=== PATIENT | female | born 1980 ===

== ENCOUNTER 2017-10-21 18:13 | Emergency (ER) | payer OTHER ==
[2017-10-21 18:21] VITALS: BP 113/66; PULSE 86; RESP 18; TEMP 99.9; O2SAT 98
--- NOTE | 2017-10-21 19:13 | ED PDOC ---
HPI: General Adult Time Seen by Provider: 10/21/17 18:50 Chief Complaint (Nursing): Flu-like Symptoms Chief Complaint (Provider): Flu Like Symptoms History Per: Patient History/Exam Limitations: no limitations Onset/Duration Of Symptoms: Days (x1) Current Symptoms Are (Timing): Still Present Additional Complaint(s): 37 year old female presents to the ED with flu like symptoms. The patient states that last night she developed body aches, swollen lymph nodes, headache and subjective fever. Denies cough, nausea, vomiting, diarrhea. PMD: Dr. Bunny Gayle Past Medical History Reviewed: Historical Data, Nursing Documentation, Vital Signs Vital Signs: Last Vital Signs Temp 99.9 F H 10/21/17 18:17 Pulse 86 10/21/17 18:17 Resp 18 10/21/17 18:17 BP 113/66 10/21/17 18:17 Pulse Ox 98 10/21/17 18:17 - Medical History PMH: HTN - Surgical History Surgical History: Appendectomy - Social History Current smoker - smoking cessation education provided: No Ex-Smoker (has not smoked in the last 12 months): No Alcohol: None Drugs: Denies - Immunization History Hx Tetanus Toxoid Vaccination: No Hx Influenza Vaccination: No Hx Pneumococcal Vaccination: No - Home Medications Home Medications: Ambulatory Orders Medication Instructions Recorded valACYclovir [Valtrex] 2 gm PO BID #4 tab 09/07/15 Oseltamivir Phosphate [Tamiflu] 75 mg PO BID #10 capsule 10/21/17 - Allergies Allergies/Adverse Reactions: Allergies Allergy/AdvReac Type Severity Reaction Status Date / Time Penicillins Allergy Intermediate RASH Verified 10/21/17 18:25 Review of Systems Constitutional: Positive for: Fever (subjective), Other (bodyaches) Respiratory: Negative for: Cough Gastrointestinal: Negative for: Nausea, Vomiting, Diarrhea Neurological: Positive for: Headache Physical Exam - Physical Exam Appears: Positive for: Non-toxic. Negative for: Well (appears ill) Head Exam: Positive for: NORMAL INSPECTION Skin: Positive for: Normal Color, Warm, Dry. Negative for: Rash Eye Exam: Positive for: Normal appearance, EOMI, PERRL ENT: Positive for: Normal ENT Inspection. Negative for: Nasal Congestion, Pharyngeal Erythema, Tonsillar Exudate, Tonsillar Swelling Cardiovascular/Chest: Positive for: Regular Rate, Rhythm, Chest Non Tender. Negative for: Tachycardia Respiratory: Positive for: Normal Breath Sounds. Negative for: Wheezing, Respiratory Distress Neurologic/Psych: Positive for: Alert, Oriented - ECG O2 Sat by Pulse Oximetry: 98 (RA) Pulse Ox Interpretation: Normal Medical Decision Making Medical Decision Makin Initial Impression 37 y/o female presenting with flu like symptoms Initial Plan: * Reevaluation Documented by Heather Erickson acting as a scribe for Miguelina Hemphill PA-C. All medical record entries made by the Scribe were at my direction and personally dictated by me. I have reviewed the chart and agree that the record accurately reflects my personal performance of the history, physical exam, medical decision making, and the department course for this patient. I have also personally directed, reviewed, and agree with the discharge instructions and disposition. Disposition - Clinical Impression Clinical Impression: Influenza-like symptoms - Patient ED Disposition Is Patient to be Admitted: No Counseled Patient/Family Regarding: Studies Performed, Diagnosis, Rx Given - Disposition Disposition: Routine/Home Disposition Time: 19:16 Condition: STABLE Prescriptions: Oseltamivir Phosphate [Tamiflu] 75 mg PO BID #10 capsule Instructions: Influenza (ED) Forms: [facility] ([place]) - POA Present On Arrival: None
== END 2017-10-21 19:10 | disposition home or self-care (01) ==
LOC: H.ER 18:13
DX: J11.1 Influenza due to unidentified influenza virus with other respiratory manifestations (principal); I10 Essential (primary) hypertension; Z87.891 Personal history of nicotine dependence; Z88.0 Allergy status to penicillin

== ENCOUNTER 2018-10-10 00:53 | Emergency (ER) | payer OTHER ==
[2018-10-10 01:06] VITALS: O2SAT 98
[2018-10-10] MEDS ORDERED: Iohexol 240 (50 ml) PO ONE (01:50)
[2018-10-10] MEDS ORDERED: Iohexol 240 (50 ml) ONE (02:50)
[2018-10-10] MEDS ORDERED: Morphine 4 MG/ML VIAL ONE (02:50)
[2018-10-10 03:24] LABS: BASO % 0.3 % (0.0-2.0); EOS % 0.3 % (0.0-4.0); HEMOGLOBIN 11.6 g/dL (12.0-16.0); LYMPH # 0.8 K/uL (1.0-4.3); LYMPH % 13.9 % (20.0-40.0); MEAN CELL VOLUME 90.9 fl (81.0-99.0); MEAN CORPUSCULAR HEMOGLOBIN 30.2 pg (27.0-31.0); MEAN CORPUSCULAR HGB CONC 33.2 g/dL (33.0-37.0); MEAN PLATELET VOLUME 9.5 fl (7.2-11.7); MONO # 0.3 K/uL (0.0-0.8); MONO % 4.8 % (0.0-10.0); NEUT # 4.9 K/uL (1.8-7.0); NEUT % 80.7 % (50.0-75.0); NRBC % 0.1 % (0.0-0.0); RBC 3.85 Mil/uL (3.80-5.20); RED CELL DISTRIBUTION WIDTH 13.1 % (11.5-14.5)
[2018-10-10 03:25] LABS: ALB/GLOB RATIO 1.1 (1.0-2.1); ALBUMIN 4.2 g/dL (3.5-5.0); ALT/SGPT 43 U/L (9-52); AST/SGOT 44 U/L (14-36); BLOOD UREA NITROGEN 9 mg/dl (7-17); GFR NON-AFRICAN AMERICAN > 60; LIPASE 47 U/L (23-300)
--- NOTE | 2018-10-10 05:03 | ED PDOC ---
HPI: Abdomen Time Seen by Provider: 10/10/18 01:06 Chief Complaint (Nursing): Abdominal Pain Chief Complaint (Provider): Epigastric abdominal pain History Per: Patient History/Exam Limitations: no limitations Onset/Duration Of Symptoms: Hrs Outside of [place] travel?: No Current Symptoms Are (Timing): Still Present Additional Complaint(s): 37 yo female with history of gastric sleeve presents for evaluation of abdominal pain. PT reports pain most in the epigastric area but states it does hurt all over. PT also reports nausea/vomiting and watery diarrhea. No fever/chills. Past Medical History Vital Signs: Last Vital Signs Temp 99.7 F H 10/10/18 00:59 Pulse 88 10/10/18 00:59 Resp 17 10/10/18 00:59 BP 123/84 10/10/18 00:59 Pulse Ox 98 10/10/18 00:59 - Medical History PMH: HTN - Surgical History Surgical History: Appendectomy - Family History Family History: States: No Known Family Hx - Immunization History Hx Tetanus Toxoid Vaccination: No Hx Influenza Vaccination: No Hx Pneumococcal Vaccination: No - Home Medications Home Medications: Ambulatory Orders Medication Instructions Recorded valACYclovir [Valtrex] 2 gm PO BID #4 tab 09/07/15 Oseltamivir Phosphate [Tamiflu] 75 mg PO BID #10 capsule 10/21/17 - Allergies Allergies/Adverse Reactions: Allergies Allergy/AdvReac Type Severity Reaction Status Date / Time Penicillins Allergy Intermediate RASH Verified 10/21/17 18:25 - Laboratory Results Result Diagrams: 10/10/18 02:45 10/10/18 02:45 - ECG O2 Sat by Pulse Oximetry: 98 Medical Decision Making Medical Decision Making: Continued care by Dr. Elias. CT pending. Disposition - Clinical Impression Clinical Impression: Abdominal pain - Patient ED Disposition Is Patient to be Admitted: Transfer of Care - Disposition Disposition: Transfer of Care Disposition Time: 05:15 Condition: STABLE Forms: [facility] ([place]ian)
[2018-10-10] MEDS ORDERED: Sodium Chloride 0.9% 50 ML IV ONE (05:42)
[2018-10-10] MEDS ORDERED: Iohexol 300 100 ML IJ ONE (05:42)
--- NOTE | 2018-10-10 06:50 | ED PDOC ---
ED Additional Note - Date & Time of Evaluation Date of Evaluation: 10/10/18 - Physician Additional Note Physician Additional Note: Time: 0700 --Patient to be endorsed to Dr. Heck, pending CT ABD/pelvis results. Scribe Attestation: Documented by Savannah Wang, acting as a scribe for Chas Elias MD. Provider Scribe Attestation: All medical record entries made by the Scribe were at my direction and personally dictated by me. I have reviewed the chart and agree that the record accurately reflects my personal performance of the history, physical exam, medical decision making, and the department course for this patient. I have also personally directed, reviewed, and agree with the discharge instructions and disposition.
--- NOTE | 2018-10-10 07:12 | ED PDOC ---
- Laboratory Results Result Diagrams: 10/10/18 02:45 10/10/18 02:45 - ECG O2 Sat by Pulse Oximetry: 98 Medical Decision Making Medical Decision Makinam pending CT result CT reveals internal hernia however nonincarcerated, per radiologist likely incidental finding. Surgery consulted and recommended Obs for possible OR given pain Surgery resident in ED, further orders placed and care transferred. Dr Sánchez in ED 1030a Abd US no acute findings per radiologist 2PM surgery Dr Sánchez and Ander re-evaluated patient, pain-free, state ok for discharge to see in office this week for scheduling of elective repair. Results explained in lithuanian and patient understanding of plan and need for return ER immediately if symptoms or pain return. Disposition - Clinical Impression Clinical Impression: Abdominal pain, Internal hernia - POA Present On Arrival: None - Disposition Disposition: Routine/Home Disposition Time: 09:00 Condition: STABLE
[2018-10-10 07:53] VITALS: RESP 19
[2018-10-10] MEDS ORDERED: Morphine 4 MG/ML VIAL IVP PRN (08:38)
[2018-10-10] MEDS ORDERED: Lactated Ringer's 1,000 ML IV SCH (08:45)
[2018-10-10 09:03] LABS: VENOUS BLOOD GAS BASE EXCESS 2.3 mmol/L (0.0-2.0); VENOUS BLOOD GAS PCO2 43 mmHg (40-60); VENOUS BLOOD GAS PO2 37 mm/Hg (30-55); VENOUS BLOOD PH 7.41 (7.32-7.43)
[2018-10-10 09:04] VITALS: TEMP 97
[2018-10-10 10:00] LABS: INR 1.1; PROTHROMBIN TIME 12.7 Seconds (9.8-13.1)
--- NOTE | 2018-10-10 10:07 | CP.PCM.HP ---
History of Present Illness - History of Present Illness History of Present Illness: General Surgery H&P for Dr. Sánchez Consult: Internal Hernia CC: Abdominal pain, nausea, vomiting, diarrhea HPI: 37 year old female, past medical history of Gastric Bypass (2 years ago), presents to the [facility] emergency department with abdominal pain, nausea, and vomiting. Patient states since yesterday she began having significant abdominal in with nausea, multiple episodes of NBNB vomiting, and clear diarrhea. She goes weeks without having a bowel movement since having her surgery. Patient has been unable to tolerate a PO diet. Admits to subjective fever and chills. The pain medications in the ED have helped alleviate her pain symptoms. No aggravating factors that she is aware of. Denies SOB, CP, or urinary symptoms. PMH: None PSH: Gastric Bypass (2 years ago), Appendectomy, Breast reduction FH: Noncontributory SH: Denies tobacco, alcohol, drugs ALL: PCNs Meds: See MAR Present on Admission - Present on Admission Any Indicators Present on Admission: No Review of Systems - Constitutional Constitutional: absent: Chills, Fever, Weight Loss - EENT Eyes: absent: Blurred Vision, Change in Vision Nose/Mouth/Throat: absent: Nasal Congestion, Nasal Discharge - Cardiovascular Cardiovascular: absent: Chest Pain, Dyspnea - Respiratory Respiratory: absent: Cough, Dyspnea - Gastrointestinal Gastrointestinal: Abdominal Pain, Diarrhea, Nausea, Vomiting - Genitourinary Genitourinary: absent: Difficulty Urinating, Dysuria - Musculoskeletal Musculoskeletal: absent: Back Pain, Neck Pain - Integumentary Integumentary: absent: Bleeding Lesions, Changing Lesions - Neurological Neurological: absent: Confusion, Dizziness - Psychiatric Psychiatric: absent: Anxiety, Depression Past Patient History - Infectious Disease Hx of Infectious Diseases: None - Past Medical History & Family History Past Medical History?: No - Past Social History Smoking Status: Never Smoked - CARDIAC Hx Hypertension: Yes - PSYCHIATRIC Hx Substance Use: No - SURGICAL HISTORY Hx Surgeries: Yes Hx Appendectomy: Yes - ANESTHESIA Hx Anesthesia: Yes Meds Allergies/Adverse Reactions: Allergies Allergy/AdvReac Type Severity Reaction Status Date / Time Penicillins Allergy Intermediate RASH Verified 10/21/17 18:25 Physical Exam - Constitutional Appears: Non-toxic, No Acute Distress - Head Exam Head Exam: ATRAUMATIC, NORMAL INSPECTION, NORMOCEPHALIC - Eye Exam Eye Exam: EOMI - ENT Exam ENT Exam: Mucous Membranes Dry - Respiratory Exam Respiratory Exam: NORMAL BREATHING PATTERN. absent: Respiratory Distress - Cardiovascular Exam Cardiovascular Exam: REGULAR RHYTHM. absent: Tachycardia - GI/Abdominal Exam GI & Abdominal Exam: Guarding, Normal Bowel Sounds, Rebound, Soft, Tenderness. absent: Distended - Neurological Exam Neurological exam: Alert, Oriented x3 - Psychiatric Exam Psychiatric exam: Normal Affect, Normal Mood - Skin Skin Exam: Dry, Intact, Normal Color, Warm Results - Vital Signs Recent Vital Signs: Last Vital Signs Temp 97 F L 10/10/18 09:03 Pulse 65 10/10/18 09:03 Resp 19 10/10/18 09:03 BP 115/67 10/10/18 09:03 Pulse Ox 98 10/10/18 09:03 - Labs Result Diagrams: 10/10/18 02:45 10/10/18 02:45 Labs: Laboratory Results - last 24 hr 10/10/18 10/10/18 10/10/18 02:45 02:45 08:48 WBC 6.0 RBC 3.85 Hgb 11.6 L Hct 35.0 MCV 90.9 MCH 30.2 MCHC 33.2 RDW 13.1 Plt Count 211 MPV 9.5 Neut % (Auto) 80.7 H Lymph % (Auto) 13.9 L [place] % (Auto) 4.8 Eos % (Auto) 0.3 Baso % (Auto) 0.3 Neut # (Auto) 4.9 Lymph # (Auto) 0.8 L [place] # (Auto) 0.3 Eos # (Auto) 0.0 Baso # (Auto) 0.0 PT INR pO2 37 VBG pH 7.41 VBG pCO2 43 VBG HCO3 26.2 VBG Total CO2 28.6 H VBG O2 Sat (Calc) 76.7 H VBG Base Excess 2.3 H VBG Potassium 3.7 Glucose 90 Lactate 0.6 L FiO2 21.0 Sodium 135 134.0 Potassium 4.3 Chloride 103 105.0 Carbon Dioxide 24 Anion Gap 12 BUN 9 Creatinine 0.7 Est GFR ( Amer) > 60 Est GFR (Non-Af Amer) > 60 Random Glucose 102 Calcium 9.0 Total Bilirubin 0.7 AST 44 H ALT 43 Alkaline Phosphatase 95 Total Protein 7.9 Albumin 4.2 Globulin 3.7 Albumin/Globulin Ratio 1.1 Lipase 47 Venous Blood Potassium 3.7 10/10/18 09:30 WBC RBC Hgb Hct MCV MCH MCHC RDW Plt Count MPV Neut % (Auto) Lymph % (Auto) [place] % (Auto) Eos % (Auto) Baso % (Auto) Neut # (Auto) Lymph # (Auto) [place] # (Auto) Eos # (Auto) Baso # (Auto) PT 12.7 INR 1.1 pO2 VBG pH VBG pCO2 VBG HCO3 VBG Total CO2 VBG O2 Sat (Calc) VBG Base Excess VBG Potassium Glucose Lactate FiO2 Sodium Potassium Chloride Carbon Dioxide Anion Gap BUN Creatinine Est GFR ( Amer) Est GFR (Non-Af Amer) Random Glucose Calcium Total Bilirubin AST ALT Alkaline Phosphatase Total Protein Albumin Globulin Albumin/Globulin Ratio Lipase Venous Blood Potassium Assessment & Plan - Assessment and Plan (Free Text) Assessment: 37F w/ abdominal pain, nausea, vomiting CT scan shows internal hernia, not incarcerated Plan: NPO IVF No NGT - risk of gastric pouch perforation Antiemetics and analgesics Vital Signs I&Os Serial abdominal exams Type and Screen PT/INR CXR Symptoms resolved spontaneously in the ED, patient to follow up as an outpatient Instructions given to return if symptoms return/worsen D/w Dr. Gonzalo Carlos PGY1
[2018-10-10 10:26] LABS: PARTIAL THROMBOPLASTIN TIME 66.7 Seconds (25.6-37.1)
--- NOTE | 2018-10-10 11:53 | US ---
Date of service: 10/10/2018 HISTORY: abd pain COMPARISON: None. TECHNIQUE: Sonographic evaluation of the right upper quadrant of the abdomen. FINDINGS: LIVER: Measures 14.0 cm in length. Normal echogenicity of the liver parenchyma. No mass. No intrahepatic bile duct dilatation. GALLBLADDER: Gallbladder is physiologically distended. No evidence of intraluminal gallbladder calculi. No pericholecystic fluid collections or sonographic Huber sign. COMMON BILE DUCT: Measures 4.7 mm. No stones. No dilatation. PANCREAS: Unremarkable as visualized. No mass. No ductal dilatation. RIGHT KIDNEY: Measures 12.0 x 6.0 x 6.5 cm in length. Normal echogenicity. No calculus, mass, or hydronephrosis. AORTA: No aneurysmal dilatation. IVC: Unremarkable. OTHER FINDINGS: None . IMPRESSION: Unremarkable right upper quadrant ultrasound.
[2018-10-10 12:47] LABS: INR 1.1; PROTHROMBIN TIME 12.6 Seconds (9.8-13.1)
[2018-10-10 12:50] LABS: PARTIAL THROMBOPLASTIN TIME 36.7 Seconds (25.6-37.1)
[2018-10-10 13:41] LABS: SQUAMOUS EPITHIAL 4 /hpf (0-5); URINE BACTERIA RARE (<OCC); URINE BILIRUBIN NEGATIVE (NEGATIVE); URINE BLOOD NEGATIVE (NEGATIVE); URINE CLARITY CLEAR (Clear); URINE COLOR YELLOW (YELLOW); URINE GLUCOSE (UA) NEG (NEGATIVE); URINE LEUKOCYTE ESTERASE NEG Leu/uL (Negative); URINE PROTEIN NEGATIVE (NEGATIVE); URINE UROBILINOGEN 0.2-1.0 mg/dL (0.2-1.0)
[2018-10-10 14:37] VITALS: BP 128/78; PULSE 78
--- NOTE | 2018-10-10 14:54 | CT ---
Date of service: 10/10/2018 PROCEDURE: CT Abdomen and Pelvis with contrast HISTORY: abdominal pain, hx gastric bypass COMPARISON: None. TECHNIQUE: Contrast dose: Radiation dose: Total exam DLP = 534.22 mGy-cm. This CT exam was performed using one or more of the following dose reduction techniques: Automated exposure control, adjustment of the mA and/or kV according to patient size, and/or use of iterative reconstruction technique. FINDINGS: LOWER THORAX: Heart size is within range of normal. No significant pericardial effusion. Tiny hiatal hernia. Mild passive/dependent type atelectasis both posterior lower lung toney. LIVER: Liver exhibits normal size. Significant intrahepatic biliary ductal dilatation with dilatation of the common bile duct. Mild fatty hepatic infiltration. The GALLBLADDER AND BILE DUCTS: Gallbladder is markedly distended. No evidence of intraluminal gallbladder calculi. Common bile duct is the significantly dilated to the level of the ampulla. Note that the wall of the duodenum at this level is slightly irregular which could be due to incomplete distention and peristalsis however possibility of a duodenitis cannot be excluded. Clinical correlation recommended. Follow-up MRCP and/or ERCP recommended. PANCREAS: Pancreas appears grossly unremarkable without masses collections or calcifications.. No gross lesion or ductal dilatation. SPLEEN: Spleen exhibits normal size and attenuation pattern without masses collections or calcifications. ADRENALS: The no adrenal lesions KIDNEYS AND URETERS: Kidneys demonstrate symmetric nephrograms. No evidence of nephrolithiasis or hydronephrosis. VASCULATURE: Unremarkable. No aortic aneurysm. No aortic atherosclerotic calcification or mural plaque present. BOWEL: Evaluation of the bowel is somewhat limited due to incomplete opacification. Postoperative changes of gastric sleeve procedure. Stomach is incompletely distended. No evidence of acute mechanical small bowel obstruction with oral contrast material extending into the colon to the level of the proximal/mid transverse colon region. The. APPENDIX: Normal appendix. PERITONEUM: No free fluid. No free air. Apparent swirled appearance of superior mesenteric vein right mid abdomen.. No convincing evidence of swirled appearance mesentery to suggest internal hernia however clinical correlation recommended Small fat contain umbilical hernia. LYMPH NODES: Unremarkable. No enlarged lymph nodes. BLADDER: Urinary bladder is physiologically distended. No evidence of intraluminal urinary bladder calculi. REPRODUCTIVE: Questionable small cervical nabothian cyst.. There appears to be a 2 cm right ovarian cyst within adjacent smaller involuting and/or hemorrhagic cyst. BONES: Mild multilevel degenerative spondylosis of the lower thoracic and lumbar spine OTHER FINDINGS: None. IMPRESSION: Mild fatty hepatic infiltration. Marked intrahepatic biliary ductal dilatation and dilatation of the common bile duct to the level of the anterior apparent. Slight wall thickening of the duodenum possibly secondary to a combination of incomplete distention and peristalsis however a duodenitis not excluded. Consider follow-up MRCP/ERCP for further evaluation. Apparent swirled appearance of superior mesenteric vein right mid abdomen.. No convincing evidence of swirled appearance mesentery to suggest internal hernia however clinical correlation recommended Small right-sided ovarian cystic changes as described
--- NOTE | 2018-10-10 17:24 | RAD ---
Date of service: 10/10/2018 HISTORY: Preoperative assessment COMPARISON: None available. FINDINGS: LUNGS: No active pulmonary disease. PLEURA: No significant pleural effusion identified, no pneumothorax apparent. CARDIOVASCULAR: No aortic atherosclerotic calcification present. Normal cardiac size. No pulmonary vascular congestion. OSSEOUS STRUCTURES: No significant abnormalities. VISUALIZED UPPER ABDOMEN: Normal. OTHER FINDINGS: None. IMPRESSION: No active disease.
== END 2018-10-10 14:50 | disposition home or self-care (01) ==
LOC: H.ER 00:53 → UNDOADMOB 09:15 → H.ERHOLD 09:15 → H.ER 14:50
DX: K46.0 Unspecified abdominal hernia with obstruction, without gangrene (principal); R10.9 Unspecified abdominal pain
CPT/HCPCS: 71045; 74177; 76705; 80053; 81003; 81025; 82150; 82803; 83690; 85025; 85610; 85730; 86850; 86900; 86920; 96374; 96375; 99284; J2270; J2405; J7120; Q9966; Q9967